=== PATIENT | female | born 1995 | race Two or more races ===

== ENCOUNTER 2023-01-28 18:24 | Emergency (ER) | payer OTHER ==
[~2023-01-28] VITALS: Ht 154.9 cm; Wt 48.6 kg
[2023-01-28] MEDS ORDERED: cefTRIAXone SOD 1,000 MG VL IM ONE (23:30)
[2023-01-29 00:36] VITALS: BP 106/67; PULSE 83; RESP 18; TEMP 97.4; O2SAT 98
== END 2023-01-29 | disposition home or self-care (01) ==
LOC: ER 18:24
DX: S00.551A Superficial foreign body of lip, initial encounter (principal); J45.909 Unspecified asthma, uncomplicated; X58.XXXA Exposure to other specified factors, initial encounter; Y93.89 Activity, other specified; Y92.89 Other specified places as the place of occurrence of the external cause; Y99.8 Other external cause status
CPT/HCPCS: 96372; 99284; J0696